=== PATIENT | female | born 1990 | race American Indian/Alaskan Native ===

== ENCOUNTER 2017-03-24 05:38 | Outpatient (CLI) | payer OTHER ==
[2017-03-24 06:13] VITALS: BP 129/82
== END 2017-03-24 06:38 | disposition home or self-care (01) ==
LOC: TRG 05:38
PROVIDERS: ATTEND Obstetrics & Gynecology
DX: O47.1 False labor at or after 37 completed weeks of gestation (principal); Z3A.37 37 weeks gestation of pregnancy